=== PATIENT | female | born 1980 | race Caucasian/White ===

== ENCOUNTER 2017-05-19 05:47 | Day surgery (SDC) | payer OTHER ==
[~2017-05-19] VITALS: Ht 149.9 cm; Wt 55.6 kg
[2017-05-19] MEDS ORDERED: LACTATED RINGERS 1,000 ML IV SCH (06:39)
[2017-05-19] MEDS ORDERED: NONE PER PT (06:41)
[2017-05-19 06:43] VITALS: BP 107/70
[2017-05-19] MEDS ORDERED: MIDAZOLAM 1 MG/ML, 2ML ONE (07:08)
[2017-05-19] MEDS ORDERED: FENTANYL PF 250 MCG/5ML ONE (07:08)
[2017-05-19 07:29] LABS: HCG UR SG 1.027 (1.003-1.030)
[2017-05-19] MEDS ORDERED: KETOROLAC 30 MG/1 ML ONE (07:38)
[2017-05-19] MEDS ORDERED: BUPIVACAINE/PF 0.25% INFIL ONE (08:24)
[2017-05-19] MEDS ORDERED: MEPERIDINE/PF 25MG/0.5ML IVPush PRN (08:30)
[2017-05-19] MEDS ORDERED: EPHEDRINE 50 MG/ML, 1ML IVPush PRN (08:30)
[2017-05-19] MEDS ORDERED: HYDROmorphone 1 MG/ML, 1ML IV PRN (08:30)
[2017-05-19] MEDS ORDERED: PROMETHAZINE 25 MG/ML, 1ML IV PRN (08:30)
[2017-05-19] MEDS ORDERED: HYDROcodone/APAP 7.5-325MG/15ML UDC PO PRN (08:30)
[2017-05-19] MEDS ORDERED: hydrALAzine 20 MG/ML, 1ML IV PRN (08:30)
[2017-05-19] MEDS ORDERED: ALBUTEROL SULFATE 2.5 MG/3 ML NPPB PRN (08:30)
[2017-05-19] MEDS ORDERED: ACETAMINOPHEN 325 MG TABLET PO PRN (08:30)
[2017-05-19] MEDS ORDERED: MIDAZOLAM 1 MG/ML, 2ML IV PRN (08:30)
[2017-05-19] MEDS ORDERED: OXYcodone 5 MG/5 ML ORAL.SOL UDC PO PRN (08:30)
[2017-05-19] MEDS ORDERED: LABETALOL 5MG/ML, 20ML IV PRN (08:30)
[2017-05-19] MEDS ORDERED: METOPROLOL 1 MG/ML, 5ML IV PRN (08:30)
[2017-05-19] MEDS ORDERED: ONDANSETRON 2MG/ML, 2ML IVPush PRN (08:30)
[2017-05-19] MEDS ORDERED: DIAZEPAM 5 MG/ML, 2ML IVPush PRN (08:30)
[2017-05-19] MEDS ORDERED: GLYCOPYRROLATE 0.2MG/1ML, 5ML ONE (08:42)
[2017-05-19] MEDS ORDERED: ROCURONIUM 10 MG/ML,10ML ONE (08:42)
[2017-05-19] MEDS ORDERED: CEFAZOLIN 1,000 MG ONE (08:42)
[2017-05-19] MEDS ORDERED: DEXAMETHASONE 4 MG/ML, 1ML ONE (08:42)
[2017-05-19] MEDS ORDERED: PROPOFOL 10 MG/ML, 20ML ONE (08:42)
[2017-05-19] MEDS ORDERED: ONDANSETRON 2MG/ML, 2ML ONE (08:42)
[2017-05-19] MEDS ORDERED: SUCCINYLCHOLINE 20 MG/ML, 10ML ONE (08:42)
[2017-05-19] MEDS ORDERED: NEOSTIGMINE 1 MG/ML, 10ML ONE (08:42)
[2017-05-19] MEDS: MEDROXYPROGESTERONE ACETATE 150 MG/ML IM ONE ×2 (09:30→09:50)
[2017-05-19] MEDS ORDERED: FENTANYL PF 100 MCG/2ML ONE (09:39)
[2017-05-19] MEDS ORDERED: OXYcodone 5 MG/5 ML ORAL.SOL UDC ONE (09:39)
[2017-05-19] MEDS ORDERED: ACETAMINOPHEN 650 MG/20.3 ML UDC ONE (09:39)
[2017-05-19] MEDS: FENTANYL PF 100 MCG/2ML IV PRN ×3 (09:45→10:10)
== END 2017-05-19 13:17 | disposition home or self-care (01) ==
LOC: OUT 05:47
PROVIDERS: ATTEND Specialist
DX: N80.1 Endometriosis of ovary (principal)
CPT/HCPCS: 36415; 58661; 81025; 86850; 86900; 86923; 88305; J0330; J0690; J1050; J1100; J1885; J2250; J2405; J2704; J2710; J3010; J3490; J7120; S2900